=== PATIENT | male | born 1975 | race Caucasian/White ===

== ENCOUNTER → 2018-12-19 | Emergency (ER) | payer OTHER ==
[~2018-12-19] VITALS: Ht 170.2 cm; Wt 80.7 kg
[~2018-12-19] MED LIST: DICLOFENAC SODI50 MG PO; ORPHENADRINE C100 MG PO; [UNRECOGNIZED DRUG - REMARK]
== END | disposition home or self-care (01) ==
LOC: ER 18:16
DX: S00.83XA Contusion of other part of head, initial encounter (principal); S20.212A Contusion of left front wall of thorax, initial encounter; W18.39XA Other fall on same level, initial encounter; Y93.89 Activity, other specified; Y92.89 Other specified places as the place of occurrence of the external cause; Y99.8 Other external cause status